=== PATIENT | female | born 1965 | race Caucasian/White ===

== ENCOUNTER → 2017-06-24 | Outpatient (CLI) | payer BC ==
[~2017-06-24] MED LIST: AMOX500C3 PO; B-CO1CAP3 PO; CALC600T9 PO; COEN1CAP37 PO; CYCL10TA6 PO; FLUT0.15 NAE; MULT-506 PO; NXM/40 PO; RXC5 PO; SUMA50TA15 PO; ULT50X PO; VITA400C28 PO
[2017-06-24 13:45] LABS: ALT/SGPT 30 U/L (12-78); BLOOD UREA NITROGEN 17 mg/dl (7-18); BUN/CREATININE RATIO 25.2 (10-20); CALCIUM 9.1 mg/dl (8.5-10.1); CARBON DIOXIDE 28 mmol/L (21-32); CHLORIDE 110 mmol/L (98-107); CHOLESTEROL 225 mg/dl (0-200); CREATININE 0.69 mg/dl (0.60-1.20); GLUCOSE 82 mg/dl (70-99); POTASSIUM 4.3 mmol/L (3.5-5.1); SODIUM 144 mmol/L (136-145); TRIGLYCERIDES 92 mg/dl (0-150); VERY LOW DENSITY LIPOPROT CALC 18 mg/dl
[2017-06-24 13:55] LABS: ALB/GLOB RATIO 1.2 (0.9-2); ALKALINE PHOSPHATASE 57 U/L (45-117); AST/SGOT 18 U/L (15-37); HDL CHOLESTEROL 56 mg/dl; LDL CHOLESTEROL CALCULATED 151 mg/dl; THYROID STIMULATING HORMONE 0.576 uIu/ml (0.300-4.500)
== END | disposition home or self-care (01) ==
LOC: C.LABBC 09:23
PROVIDERS: ATTEND Physician Assistant Medical
DX: Z00.00 Encounter for general adult medical examination without abnormal findings (principal); E78.5 Hyperlipidemia, unspecified

== ENCOUNTER → 2017-07-12 | Outpatient (CLI) | payer BC | END | disposition home or self-care (01) | LOC: C.MAMM 09:00 | PROVIDERS: ATTEND Physician Assistant Medical | DX: M85.89 Other specified disorders of bone density and structure, multiple sites (principal) ==

== ENCOUNTER → 2017-08-11 | Outpatient (CLI) | payer BC ==
--- NOTE | 2017-08-11 15:46 | DIAGNOSTIC IMAGING REPORT ---
LEFT LOWER EXTREMITY WITHOUT CLINICAL HISTORY: 52 years-old Female presenting with L KNEE F/U,R/O GANGLION CYST VS LAT RETINACULAR TE. TECHNIQUE: Multidetector CT of the left knee was performed without the use of intravenous contrast. IV contrast: None. A dose lowering technique was used consistent with the principles of ALARA (as low as reasonably achievable). COMPARISON: Plain radiograph of the left knee from 01/27/2016. CT DOSE (mGy.cm): The estimated cumulative dose is 193.31 mGy.cm. FINDINGS: [employer] topogram: Total left knee arthroplasty. Again demonstrated is postsurgical change of total knee arthroplasty with patellar resurfacing. No apparent hardware complication. Minimal radiolucency subjacent to the cement along the posterior tibial plateau is likely within the range of expected postsurgical findings. No acute fracture or malalignment. Joint space preserved. Moderate knee joint effusion with synovial thickening indicating synovitis. The medial and lateral patellar retinacula are grossly intact. Normal muscle bulk. No soft tissue fluid collection. Beam hardening artifact from the orthopedic hardware degrades evaluation. IMPRESSION: 1. Total knee arthroplasty with patellar resurfacing. No hardware complication. 2. Moderate knee joint effusion with synovitis. 3. Artifact significantly degrades evaluation at the level of the knee joint. Within this limitation, no gross evidence of a lateral retinaculum tear within limitations of CT. Electronically signed by: Quinten Rodriguez M.D. 08/11/2017 3:44 PM Dictated Date/Time: 08/11/2017 3:39 PM
== END | disposition home or self-care (01) ==
LOC: C.CTS 15:26
PROVIDERS: ATTEND Orthopaedic Surgery
DX: Z47.1 Aftercare following joint replacement surgery (principal); M65.862 Other synovitis and tenosynovitis, left lower leg

== ENCOUNTER → 2017-08-23 | Outpatient (CLI) | payer BC ==
[2017-08-27 09:46] LABS: 18KDIGG BAND NONREACTIVE (NONREACTIVE); 23KDIGG BAND NONREACTIVE (NONREACTIVE); 23KDIGM BAND REACTIVE (NONREACTIVE); 28KDIGG BAND NONREACTIVE (NONREACTIVE); 30KDIGG BAND NONREACTIVE (NONREACTIVE); 39KDIGG BAND NONREACTIVE (NONREACTIVE); 39KDIGM BAND NONREACTIVE (NONREACTIVE); 41KDIGG BAND REACTIVE (NONREACTIVE); 41KDIGM BAND NONREACTIVE (NONREACTIVE); 45KDIGG BAND NONREACTIVE (NONREACTIVE); 58KDIGG BAND NONREACTIVE (NONREACTIVE); 66KDIGG BAND NONREACTIVE (NONREACTIVE); 93KDIGG BAND NONREACTIVE (NONREACTIVE)
== END | disposition home or self-care (01) ==
LOC: C.LAB1850 16:42
PROVIDERS: ATTEND Orthopaedic Surgery
DX: M25.462 Effusion, left knee (principal)

== ENCOUNTER → 2018-07-17 | Outpatient (CLI) | payer BC | END | disposition home or self-care (01) | LOC: C.LABBC 08:39 | PROVIDERS: ATTEND Family Medicine Adult Medicine | DX: E78.5 Hyperlipidemia, unspecified (principal) ==